=== PATIENT | female | born 1965 | race Caucasian/White ===

== ENCOUNTER 2018-01-11 19:56 | Emergency (ER) | payer OTHER ==
--- NOTE | 2018-01-11 20:39 | ED Physician Documentation ---
PD HPI URI - Stated complaint Stated Complaint: SORE THROAT, COUGH, EAR PX, FEVER - Chief complaint Chief Complaint: General - History obtained from History obtained from: Patient - History of Present Illness Timing - onset: How many days ago (2-3) Timing duration: Days Timing details: Gradual onset, Still present Associated symptoms: Fever, Nasal congestion, Sore throat, Dry cough. No: NVD Contributing factors: Sick contact (her friend she is staying with is sick as well), Travel (visiting from [place], flew up a week ago. Leaving in 2 days) Similar symptoms before: Has not had sx before Recently seen: Not recently seen Review of Systems Constitutional: reports: Fever, Chills, Myalgias Nose: reports: Rhinorrhea / runny nose, Congestion Throat: reports: Sore throat Respiratory: reports: Cough GI: reports: Nausea. denies: Vomiting, Diarrhea Skin: denies: Rash PD PAST MEDICAL HISTORY - Past Medical History Cardiovascular: None Respiratory: None Neuro: Headache/migraine Musculoskeletal: Fibromyalgia - Present Medications Home Medications: Ambulatory Orders Medication Instructions Recorded Confirmed Acyclovir 400 mg PO QID #20 tablet 01/11/18 Cetirizine [ZyrTEC] 10 mg PO DAILY 01/11/18 Clonazepam 0.25 tab PO Q8HR PRN 01/11/18 Dexamethasone [Decadron] 4 mg PO DAILY #5 tablet 01/11/18 Diclofenac Potassium [Cambia] 1 patch TOP BID 01/11/18 Duloxetine HCl 120 mg PO DAILY 01/11/18 Estradiol 1 tab PO DAILY 01/11/18 Fluticasone [Flonase] 1 spray NORAH DAILY 01/11/18 Indomethacin [Indocin] 1 cap PO DAILY 01/11/18 Levothyroxine Sodium [Synthroid] 100 mcg PO DAILY 01/11/18 Montelukast Sodium 10 mg PO DAILY 01/11/18 Omeprazole [PriLOSEC] 20 mg PO DAILY 01/11/18 Simvastatin 20 mg PO DAILY 01/11/18 Tolterodine Tartrate [Tolterodine 4 mg PO DAILY 01/11/18 Tartrate ER] Topiramate 100 mg PO BID 01/11/18 clonazePAM [Clonazepam] 0.5 mg PO DAILY 01/11/18 traZODone [Desyrel] 1 tab PO DAILY 01/11/18 - Allergies Allergies/Adverse Reactions: Allergies Allergy/AdvReac Type Severity Reaction Status Date / Time erythromycin base AdvReac Nausea Verified 01/11/18 20:09 PD ED PE NORMAL - Vitals Vital signs reviewed: Yes - General General: Alert and oriented X 3, No acute distress, Well developed/nourished - HEENT HEENT: Ears normal, Moist mucous membranes, Pharynx benign - Neck Neck: Supple, no meningeal sign, No adenopathy - Cardiac Cardiac: RRR, No murmur - Respiratory Respiratory: Clear bilaterally - Abdomen Abdomen: Soft, Non tender - Derm Derm: Normal color, Warm and dry, No rash - Neuro Neuro: Alert and oriented X 3, No motor deficit, Normal speech Results - Vitals Vitals: Oxygen O2 Source Room air - Labs Labs: Microbiology 01/11/18 20:40 Group A Strep Throat Culture - Preliminary Throat Staphylococcus Aureus Laboratory Tests 01/11/18 20:40 Group A Strep Rapid Negative PD MEDICAL DECISION MAKING - ED course Complexity details: reviewed results (she and her friend both with URI symptoms and both with negative strep test. ), considered differential, d/w patient Departure - Departure Disposition: 01 Home, Self Care Clinical Impression: Cold sore Upper respiratory infection Qualifiers: URI type: unspecified URI Qualified Code(s): J06.9 - Acute upper respiratory infection, unspecified Condition: Stable Record reviewed to determine appropriate education?: Yes Instructions: ED Upper Resp Infec No Abx Tx, ED Herpes Simplex Virus Type 1 Prescriptions: Acyclovir 400 mg PO QID #20 tablet Dexamethasone [Decadron] 4 mg PO DAILY #5 tablet Comments: Drink lots of fluids. This sounds generally like a viral illness. Your rapid strep test is negative. Tylenol or ibuprofen if needed for fevers and pains. You can add Decadron steroid anti-inflammatory to help with some of the symptoms. The cold sore on her lip is likely a separate viral infection that may be responsive to an antiviral acyclovir. You can take that for the next 5 days. Recheck if not improving over the next several days to week. Discharge Date/Time: 01/11/18 22:27
[2018-01-11] MEDS ORDERED: ACETAMINOPHEN 325 MG TABLET PO STA (21:11)
[2018-01-11] MEDS ORDERED: DEXAMETHASONE 10 MG/ML VIAL PO STA (21:11)
[2018-01-11] MEDS ORDERED: ACYCLOVIR 200 MG CAPSULE PO STA (21:11)
[2018-01-11 22:00] VITALS: BP 137/78
== END 2018-01-11 22:27 | disposition home or self-care (01) ==
LOC: ED 19:56
DX: B00.1 Herpesviral vesicular dermatitis (principal); J06.9 Acute upper respiratory infection, unspecified
CPT/HCPCS: 87070; 87430; 99283; A9270